=== PATIENT | female | born 1985 | race Caucasian/White ===

== ENCOUNTER 2021-05-13 13:11 | Emergency (ER) | payer BC, OTHER, SELFPAY ==
[2021-05-13 13:26] VITALS: BP 116/68; PULSE 78; RESP 18; TEMP 37.1; O2SAT 100
--- NOTE | 2021-05-13 13:28 | ED.URI ---
HPI - URI/Sore Throat General Chief Complaint: Upper Respiratory Infection Stated Complaint: cough,sinus pain,sorethroat Time Seen by Provider: 05/13/21 13:32 Source: patient and RN notes reviewed Mode of arrival: ambulatory Limitations: no limitations History of Present Illness HPI Narrative: 35-year-old female presents with concern for cough, sinus congestion, sore throat, body aches, chills, fever that started yesterday. Reports mild symptoms today before yesterday. Reports she had a negative at-home COVID test today. She has not taken any [id number] medications MD elicited complaint: cough and sore throat Related Data Home Medications Medication Instructions Recorded Confirmed fluoxetine 20 mg DAILY 05/13/21 05/13/21 Allergies Allergy/AdvReac Type Severity Reaction Status Date / Time EGGS Allergy Severe Anaphylactic Uncoded 02/05/11 10:20 Shock Review of Systems Review of Systems: CONSTITUTIONAL: Reports malaise, chills, sweats, or fever. EYES: Denies visual changes, redness, or discharge. ENT: Reports rhinorrhea, congestion, otalgia and sore throat. CARDIOVASCULAR: Denies chest pain, palpitations, or edema. RESPIRATORY: Reports cough. Denies dyspnea. GASTROINTESTINAL: Denies abdominal pain, nausea, vomiting, diarrhea SKIN: Denies rash or itching. MUSCULOSKELETAL: Reports myalgia. NEUROLOGIC: Denies headache. All systems reviewed & are unremarkable except as noted in HPI and below PMFSH Comments At time of signature, agree with nursing past medical, surgical, social and family history. There is no relevant family history pertinent to the presenting complaint Exam Narrative: GENERAL: Well-appearing, well-nourished, and in no acute distress. HEAD: Normocephalic EYES: PERRLA, conjunctivae clear ENT: Nares clear, clear discharge. Mucous membranes moist. TM pearly garcia with sharp light reflex bilaterally; no tragal tenderness. Oropharynx not erythematous without lesions. Tonsils not enlarged and without exudate, no drooling, no hoarseness, no trismus, uvula midline. NECK: Supple. No lymphadenopathy CHEST: Clear to auscultation, breath sounds equal. No wheezing, rhonchi, rales, or stridor. No respiratory distress, speaks in full sentences. HEART: Regular rate and rhythm. No murmur heard. SKIN: Warm, dry, no rash. NEURO: Alert and oriented x3. PSYCH: Normal mood and affect Course Course Emergency Course: Patient is aware of diagnosis, understands and agrees to treatment plan. Anticipatory guidance given. Patient agrees to follow-up as directed and is aware of reasons to seek care at the emergency department. Portions of this record may have been created with voice recognition software Level of Care: Express Care Visit Vital Signs Vital signs: Vital Signs Temperature 98.7 F 05/13/21 13:26 Pulse Rate 78 05/13/21 13:26 Respiratory Rate 18 05/13/21 13:26 Blood Pressure 116/68 05/13/21 13:26 Pulse Oximetry 100 05/13/21 13:26 Temperature 98.7 F 05/13/21 13:26 Pulse Rate 78 05/13/21 13:26 Respiratory Rate 18 05/13/21 13:26 Blood Pressure 116/68 05/13/21 13:26 Pulse Oximetry 100 05/13/21 13:26 Reviewed. MDM - URI/Sore Throat MDM Narrative Medical decision making narrative: Differential diagnosis considered: Mancuso virus, strep pharyngitis, allergic rhinitis, upper respiratory tract infection, sinusitis, rhinosinusitis, nasopharyngitis. viral pharyngitis, otitis media, otitis externa, pneumonia, bronchitis, viral cough syndrome, viral syndrome, and influenza. Exam findings show no acute concerns or changes; patient is non-toxic appearing and is in no distress. Patient is appropriate for outpatient treatment and follow-up. Lab Data Attestation: I reviewed the patient's lab results. Critical Care Time Critical Care Time Critical Care Time: No Discharge Plan Discharge Clinical Impression: Upper respiratory infection Qualifiers: URI type: unspecified viral URI Q
[2021-05-14 21:11] LABS: SARS-CoV-2 RNA PCR Positive
== END 2021-05-13 13:47 | disposition home or self-care (01) ==
PROVIDERS: Emergency Provider Nurse Practitioner
DX: U07.1 COVID-19 (principal); F32.A Depression, unspecified
CPT/HCPCS: 99213; C9803; G0463; U0003; U0005

== ENCOUNTER 2022-05-10 11:56 | Emergency (ER) | payer OTHER, BC, SELFPAY ==
[2022-05-10 12:35] VITALS: BP 119/57; PULSE 68; RESP 16; TEMP 36.4; O2SAT 99
--- NOTE | 2022-05-10 13:51 | ED.ANIMALBIT ---
HPI - Animal Bite General Chief Complaint: Animal Bite Stated Complaint: dog bite Source: patient Mode of arrival: ambulatory Limitations: no limitations History of Present Illness HPI narrative: 36-year-old female presents to [facility] with complaints of dog bite to her left forearm which occurred at 11:15 a.m. today at her employer as she works as a vet. Patient reports that her last tetanus shot was in 2009. Patient denies heavy bleeding, numbness, tingling or decreased range of motion. MD complaint: animal bite Onset (ago): hour(s) (2.5) Animal: dog Mechanism: bite Location - Extremities: Left: forearm Associated symptoms: none Treatments prior to arrival: irrigation Related Data Home Medications Medication Instructions Recorded Confirmed fluoxetine 20 mg capsule 20 mg PO DAILY 05/13/21 05/13/21 L norgest/E estradiol-E estrad 1 tablet PO DAILY 05/10/22 05/10/22 0.15 mg-30 mcg (84)/10 mcg(7) tabs,3mos ([place]) Allergies Allergy/AdvReac Type Severity Reaction Status Date / Time EGGS Allergy Severe Anaphylactic Uncoded 05/10/22 13:04 Shock Review of Systems Constitutional: Constitutional: Denies chills, Denies fatigue, Denies fever(s) and Denies weakness ENT: Denies vertigo and Denies dizziness Gastrointestinal: Gastrointestinal: Denies diarrhea, Denies nausea and Denies vomiting Integumentary/Breasts: Comments: Dog bite to left forearm PMFSH Comments At time of signature, I agree with nursing past medical, surgical, social and family history. There is no relevant family history pertinent to the presenting complaint. Exam Const: General: healthy appearing and no acute distress Nutritional Appearance: well nourished Orientation/consciousness: patient oriented x3 Limitations: no limitations HENMT: Head: normal to inspection Resp: Effort & Inspection: normal respiratory effort and not labored Auscultation: clear to auscultation bilaterally and no crackles Cardio: Rate: regular rate Rhythm: regular rhythm Heart sounds: no murmurs Skin: General skin exam: normal color Other: dog bite x2 noted to left forearm, 1 Wound measuring 1 cm in length and 1 wound measuring 2.5 cm in length; both wounds are gaping. No active bleeding noted. Neuro: General: patient oriented x3 Speech: normal speech Psych: Mental Status: mental status grossly normal Affect: normal affect Attitude: cooperative Course Course Level of Care: Express Care Visit Vital Signs Vital signs: Vital Signs Temperature 36.4 C L 05/10/22 12:35 Pulse Rate 68 05/10/22 12:35 Respiratory Rate 16 05/10/22 12:35 Blood Pressure 119/57 L 05/10/22 12:35 Pulse Oximetry 99 05/10/22 12:35 Oxygen Delivery Room Air 05/10/22 12:35 Temperature 36.4 C L 05/10/22 12:35 Pulse Rate 68 05/10/22 12:35 Respiratory Rate 16 05/10/22 12:35 Blood Pressure 119/57 L 05/10/22 12:35 Pulse Oximetry 99 05/10/22 12:35 Oxygen Delivery Room Air 05/10/22 12:35 Procedures Laceration Laceration 1: Date: 05/10/22 Time: 14:43 Site: other (forearm) Side (If applicable): left Size (cm): 2.5 Description: irregular and other (gapping) Depth: simple, single layer Local Anesthetic: lidocaine 1% Amount of anesthesia used (mL): 2 Pre-repair: wound explored and irrigated ====== Skin Level ====== Skin layer closed with: vicryl Size (cm): 5-0 Number of sutures: 6 Technique: simple, interrupted ====== Subcutaneous Layer ====== ====== Muscle Layer ====== ====== Tendon Layer ====== Laceration 2: Date: 05/10/22 Time: 14:44 Site: other (forearm) Side (If applicable): left Size (cm): 1 Description: linear Depth: simple, single layer Local Anesthetic: lidocaine 1% Amount of anesthesia used (mL): 1 Pre-repair: wound explored and irri
[2022-05-10] MEDS: TETANUS,DIPHTHERIA,AC PERTUSSIS ADULT (0.5 ML) BOOSTRIX IM (14:07)
== END 2022-05-10 14:48 | disposition home or self-care (01) ==
PROVIDERS: Emergency Provider Nurse Practitioner Family
DX: S51.812A Laceration without foreign body of left forearm, initial encounter (principal); W54.0XXA Bitten by dog, initial encounter; Z23 Encounter for immunization
CPT/HCPCS: 12002; 90471; 90715; 99213; G0463

== ENCOUNTER 2023-10-29 12:10 | Emergency (ER) | payer BC, OTHER, SELFPAY ==
[2023-10-29 12:20] VITALS: BP 110/71; PULSE 88; RESP 16; TEMP 37.2; O2SAT 100
[2023-10-29 12:33] LABS: EDSTREPNEGPOS1 Presumptive Negative
--- NOTE | 2023-10-29 12:47 | ED.URI ---
HPI - URI/Sore Throat General Chief Complaint: Upper Respiratory Infection Stated Complaint: SORE THROAT/FEVER/LOSING VOICE Time Seen by Provider: 10/29/23 12:27 Source: patient and RN notes reviewed Mode of arrival: ambulatory Limitations: no limitations History of Present Illness HPI Narrative: Patient presents today complaining of a 2 day history of sore throat, low-grade fever, congestion, cough, fatigue. Denies shortness of breath or chest pain. No known sick contacts. She has been using Tylenol, Sudafed, DayQuil, and NyQuil without relief. Related Data Home Medications Medication Instructions Recorded Confirmed loratadine 10 mg tablet (Claritin) 10 mg DIRECTED 10/29/23 10/29/23 Allergies Allergy/AdvReac Type Severity Reaction Status Date / Time EGGS Allergy Severe Anaphylactic Uncoded 05/10/22 13:04 Shock Review of Systems Review of Systems: CONSTITUTIONAL: Denies body aches,chills, or sweats.+ fever, fatigue EYES: Denies visual changes, redness, or discharge. ENT: Denies rhinorrhea, or otalgia.+ congestion, sore throat CARDIOVASCULAR: Denies chest pain, palpitations, or edema. RESPIRATORY: Denies dyspnea.+ cough GASTROINTESTINAL: Denies abdominal pain, nausea, vomiting, or diarrhea. GENITOURINARY: Denies dysuria or hematuria. SKIN: Denies rash, itching, or wounds. MUSCULOSKELETAL: Denies back pain, joint pain, or myalgia. NEUROLOGIC: Denies headache, numbness, tingling, or weakness. PSYCH: Denies depression or anxiety. PMFSH Comments At time of signature, I have reviewed and agree with nursing past medical, surgical, social and family history unless otherwise noted. Please see nursing chart for further information. There is no relevant family history pertinent to the presenting complaint Exam Narrative: GENERAL: Ill-appearing, well-nourished, and in no acute distress. HEAD: Normocephalic, atraumatic. EYES: EOMI. No redness or drainage. Conjunctivae normal. ENT: Mucous membranes pink and moist. Nares congested with rhinorrhea. TMs normal bilaterally with moderate middle ear effusions without evidence of infection. Throat normal. Uvula midline. NECK: Normal AROM. Supple. No lymphadenopathy. CHEST: No respiratory distress. Clear to auscultation. HEART: Regular rate and rhythm. No murmur appreciated. EXTREMITIES: Normal range of motion. No edema. SKIN: Warm, dry, no rash. Capillary refill normal. Normal skin turgor. NEURO: No focal deficits. Alert and oriented x3. Gait steady. PSYCH: Normal affect. No signs of depression or anxiety. Course Course Level of Care: Express Care Visit Vital Signs Vital signs: Vital Signs Temperature 99 F 10/29/23 12:20 Pulse Rate 88 10/29/23 12:20 Respiratory Rate 16 10/29/23 12:20 Blood Pressure 110/71 10/29/23 12:20 Pulse Oximetry 100 10/29/23 12:20 Temperature 99 F 10/29/23 12:20 Pulse Rate 88 10/29/23 12:20 Respiratory Rate 16 10/29/23 12:20 Blood Pressure 110/71 10/29/23 12:20 Pulse Oximetry 100 10/29/23 12:20 Reviewed MDM - URI/Sore Throat MDM Narrative Medical decision making narrative: COVID positive. Rapid strep negative. Culture pending. Influenza negative. Prescription for Paxlovid sent to pharmacy. Discussed [id number] medication as well. ED precautions given. Anticipatory guidance given. Differential Diagnosis Differential diagnosis: Likely upper respiratory infection, sinusitis, viral infection, influenza, pharyngitis and other (Strep throat, COVID-19) Lab Data Attestation: I reviewed the patient's lab results. Lab results narrative: COVID-19 positive. Rapid strep negative Influenza a and B negative Lab results entered below for COVID are negative. RN notified and will edit. Labs: Lab Results 10/29/23 10/29/23 10/29/23 Range/Units 12:22 12:31 12:51 POC Inf A,B Int Ctl [place] Yes POC Influenza A Ag Negative POC Influenza B Ag Negative POC
[2023-10-29 12:53] LABS: EDINFLUASCREEN Negative; EDINFLUBSCREEN Negative
== END 2023-10-29 13:02 | disposition home or self-care (01) ==
PROVIDERS: Emergency Provider Nurse Practitioner
DX: U07.1 COVID-19 (principal)
CPT/HCPCS: 87081; 87426; 87804; 87880; 99213; G0463